=== PATIENT | female | born 1970 | race Caucasian/White ===

== ENCOUNTER 2017-02-05 12:56 | Inpatient (IN) ==
[2017-02-05] MEDS ORDERED: LEVOFLOXACIN INJ 750 MG in PREMIX 1 EACH IV STA (13:20)
[2017-02-05] MEDS ORDERED: ONDANSETRON 4 MG/2 ML VIAL IV STA (13:20)
[2017-02-05] MEDS ORDERED: SODIUM CHLORIDE 0.9% 2,000 ML IV STA (13:20)
[2017-02-05] MEDS ORDERED: HYDROmorphone 2 MG/1 ML VIAL IV STA (13:20)
[2017-02-05] MEDS ORDERED: KETOROLAC 30 MG/1 ML VIAL IV STA (13:20)
--- NOTE | 2017-02-05 13:27 | Emergency Department Note ---
Arrival - Arrival Chief Complaint: Abdominal / Flank Pain Stated Complaint: uti & kidney stones ED Nursing Triage Note: Transferred from [facility] by EMS for UTI and Kidney Stones. 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 NS @100 cc/ hr Mode of Arrival: Stretcher Limitations: No Limitations Source: Patient Time Seen by Provider: 02/05/17 13:20 - History of Present Illness HPI Narrative: This patient presents on transfer from [facility] for pyelonephritis with renal stone disease. The patient has a 24-hour history of progressive right flank pain, pink urine, chills, nausea, and vomiting. The patient was given analgesics and antibiotics prior to transfer after laboratory at [place] revealed a white blood cell count of 38,000, a very infected urine, and CT revealing a severe right sided hydronephrosis and hydroureter with a swollen right kidney with considerable perinephric stranding. Currently patient still in a considerable degree of pain and still very nauseated. Onset (ago): hour(s) (Patient presents 24 hours post onset of symptoms.) Date of Last Menstrual Period: hysterectomy Allergies/Adverse Reactions: Allergies Allergy/AdvReac Type Severity Reaction Status Date / Time ceftriaxone [From Rocephin] Allergy Swelling Verified 02/05/17 13:11 of Lip/Tongue/Throat tramadol [From Ultram] AdvReac RASH Verified 02/05/17 13:11 Home Medications: Home Medications Medication Instructions Recorded Confirmed Type Losartan/Hydrochlorothiazide 1 each PO DAILY 04/28/16 06/03/16 History [Hyzaar 100-12.5 Tablet] cloNIDine TAB [Catapres Tab] 0.2 mg PO TID 04/28/16 06/03/16 History Amitriptyline [Elavil] 10 mg PO Q6H #120 tablet 06/03/16 Rx Citalopram Hydrobromide [Celexa] 40 mg PO DAILY #30 tablet 06/03/16 Rx Gabapentin Cap/Tab [Neurontin 300 mg PO Q6H #120 capsule 06/03/16 Rx Cap/Tab] Lisinopril/Hydrochlorothiazide 1 each PO DAILY #30 tablet 06/03/16 Rx [Lisinopril-Hctz 20-25 mg Tab] hydrALAZINE TAB [Apresoline Tab] 100 mg PO TID #90 tablet 06/03/16 Rx Ketorolac Tab [Toradol Tab] 10 mg PO Q8H #14 tablet 11/12/16 Rx Review of System - Review of System 12 point system: reviewed and no additional remarkable complaints except as stated - Review of System Constitutional: Present: as per HPI Gastrointestinal: Present: as per HPI Genitourinary female: Present: as per HPI Medical,Surgical,& Family Hx - Medical History Cardio: History of: Hypertension - Surgical History Reproductive Surgeries: Surgical HX of;: Hysterectomy - Social History Smoking Status: Current every day smoker Frequency of Alcohol Use: None Type of Drug Use: None Exam Physical Examination: GENERAL: Well developed, well nourished female in obvious discomfort sitting up in bed HEENT: Normocephalic. No trauma. Moist mucous membranes. EOMI. PERRLA. ENT NML NECK: Supple. No adenopathy. CARDIAC: Regular. No murmurs. Heart rate 88 CHEST: Clear to auscultation. No respiratory distress. O2 sat 99 ABDOMEN: Soft. Nontender. Active bowel sounds. Very tender CVAs right worse than left EXTREMITIES: No trauma. Normal ROM. No pedal edema. SKIN: No diaphoresis. No rash. NEURO: Alert. Neuro intact. No focal deficits. Vital Signs: Vital Signs Temperature 98.4 F 02/05/17 12:58 Pulse Rate 93 H 02/05/17 12:58 Respiratory Rate 19 02/05/17 12:58 Blood Pressure 109/81 02/05/17 12:58 O2 Sat by Pulse Oximetry 99 02/05/17 12:58 Course - Reevaluation(s) Reevaluation #1: Patient expectant of admission - Consultations Consultation #1: Discussed with hospitalist service who will admit for further evaluation treatment. Results - Labs Labs: Lab per Charmaine revealed glucose 144, BUN 17, creatinine 1.6, potassium 3.5, sodium 136, white blood cell count 38,000, hematocrit 42, and a very infected urine. - Diagnostic Findings Procedure: CT Abdomen and Pelvis: image reviewed by me, report reviewed by me ( Per Charmaine revealed pancreatic atrophy severe right hydronephrosis and hydroureter with perinephric stranding consistent with pyelonephritis. At L3 was a 1 cm calculus. Prior appendectomy and hysterectomy noted.) Disposition Clinical Impression: Right pyelonephritis, Right hydronephrosis/hydroureter, Right renal stone disease Case discussed with: patient Condition: Guarded Time of Disposition: 13:36
[2017-02-05] MEDS ORDERED: LEVOFLOXACIN INJ 150 ML IV ONE (13:37)
[2017-02-05] MEDS ORDERED: KETOROLAC 30 MG/1 ML VIAL ONE (13:37)
[2017-02-05] MEDS ORDERED: HYDROmorphone 2 MG/1 ML VIAL ONE (13:37)
[2017-02-05] MEDS ORDERED: ONDANSETRON 4 MG/2 ML VIAL ONE (13:37)
--- NOTE | 2017-02-05 13:49 | XRay Report ---
XR chest 1V portable Indication: Generalized abdominal pain Comparison: Chest x-ray dated June 03, 2016 Technique: Single frontal view of the chest. Findings: The cardiomediastinal silhouette is stable in configuration. Bibasilar atelectasis, right greater than left. It would be difficult to completely exclude underlying infection. There is mild elevation of the right hemidiaphragm. Visualized osseous and surrounding soft tissue structures appear grossly unchanged.. IMPRESSION: As above. PROCEDURE INTERPRETED AT [facility] DEPARTMENT OF RADIOLOGY Final Report Signed by: Dr Tuan Knight
--- NOTE | 2017-02-05 13:50 | EKG Report ---
Stationary ECG Study [facility] ER Test Date: 02/05/2017 1:48:59 PM Pat Name: ANKUSH DOZIER Department: Room: 520 Gender: F Radiologist Physician: : [id number] Requested by: Matty Benton Order Number: [id number] Reading MD: JENNIFER SMITH Intervals [place] Rate: 93 P: 243 FL: 151 QRS: -82 QRSD: 87 T: -7 QT: 332 QTc: 383 Interpretive Statements ECTOPIC ATRIAL RHYTHM LEFT AXIS DEVIATION NONSPECIFIC T-WAVE ABNORMALITY Electronically Signed On 02-06-17 20:40:37 CDT by JENNIFER SMITH [email or web address]
[2017-02-05] MEDS ORDERED: PROMETHAZINE 25 MG/1 ML VIAL IM PRN (14:12)
[2017-02-05] MEDS ORDERED: ACETAMINOPHEN 325 MG TABLET PO PRN ×2 (14:12)
[2017-02-05] MEDS ORDERED: HYDROmorphone 2 MG/1 ML VIAL IV PRN (14:12)
[2017-02-05] MEDS ORDERED: DOCUSATE SODIUM 100 MG CAPSULE PO PRN (14:12)
[2017-02-05] MEDS ORDERED: ONDANSETRON 4 MG/2 ML VIAL IV PRN (14:12)
[2017-02-05] MEDS ORDERED: ZALEPLON 5 MG CAPSULE PO PRN (14:12)
[2017-02-05] MEDS ORDERED: guaiFENesin/DM ER 600-30 MG TABLET PO PRN (14:12)
[2017-02-05 14:22] LABS: Basophils # 0.1 10*3/uL (0.0-0.2); Basophils % 0.2 % (0.0-0.8); Hematocrit 39.8 VOL% (35.7-47.0); Hemoglobin 13.9 GM/DL (12.0-16.0); Immature Granulocytes % 1.8 %; Immature Granulocytes Absolute 0.53 #; Lymphocytes # 1.3 10*3/uL (1.4-4.0); Lymphocytes % 4.3 % (21.3-54.2); Mean Corpuscular HGB Conc 34.9 GM/DL (32-36); Mean Corpuscular Hemoglobin 30 PG (27-34); Mean Corpuscular Volume 86.9 FL (87-102); Mean Platelet Volume 10.9 FL (9.6-12.0); Monocytes # 0.9 10*3/uL (0.11-0.8); Neutrophils # 26.7 10*3/uL (1.4-7.4); Neutrophils % 90.7 % (38.7-73.9); Platelet Count 245 T/CUMM (130-400); Red Blood Count 4.58 MC/CUMM (3.8-5.5); Red Cell Distribution Width 14.4 % (9.3-17.3); White Blood Count 29.5 T/CUMM (4-12)
--- NOTE | 2017-02-05 14:23 | Hospitalist History & Physical ---
<JoseGretchen Royal - Last Filed: 02/05/17 14:12> Assessment and Plan - Time spent with patient Time spent with patient: Greater than 30 minutes (1) Hydronephrosis with renal and ureteral calculus obstruction Status: Acute Assessment and plan: Ms. Tariq is a 46-year-old white female with history of hypertension, chronic pain and depression presenting as a transfer from [facility] to [facility] ER with an obstructing renal calculus with pyelonephritis. Patient is in severe pain with associated nausea and vomiting. She is being admitted to the hospitalist service under Dr. Gardenr's care. She will be given antibiotics and IV fluids. We will consult urology for the obstructing renal stone. Patient is made n.p.o. and she will be given medicines for pain control and nausea. Will restart her home medicines for her blood pressure depression and pain. Dr. Gardner will see and examined patient and further recommendations to follow. Current Visit: Yes (2) Hypertension Status: Acute Current Visit: Yes (3) Flank pain Status: Acute Current Visit: Yes (4) Nausea and vomiting Status: Acute Current Visit: Yes History of Present Illness Chief complaint: Bilateral flank pain, nausea and vomiting History of present illness: Ms. Tariq is a 46 year old white female with history of hypertension, depression , and chronic pain presenting to the ED as a transfer from [facility] with complaints of bilateral flank pain with nausea and vomiting. Patient was found on CT scan to have a right obstructing renal stone with hydronephrosis and hydroureter, white count of 38,000, and urinary tract infection. Paperwork from [facility] will be uploaded into the system for review. It is difficult to obtain history and review of systems from patient due to her writhing around in pain with active nausea and vomiting. Patient does state that the pain started yesterday afternoon suddenly and she has had kidney stones before. She has never needed to be hospitalized for them and she always passes them on her own. She says she has never seen a urologist before. Patient denies headache, chest pain, shortness of breath, constipation or diarrhea, or lower extremity edema. Patient's case was discussed with Dr. Orellana the ED physician and Dr. Gardner the admitting hospitalist, it was agreed she would be admitted for further evaluation and treatment. Home Medications Medication Instructions Recorded Confirmed Type Losartan/Hydrochlorothiazide 1 each PO DAILY 04/28/16 06/03/16 History [Hyzaar 100-12.5 Tablet] cloNIDine TAB [Catapres Tab] 0.2 mg PO TID 04/28/16 06/03/16 History Amitriptyline [Elavil] 10 mg PO Q6H #120 tablet 06/03/16 Rx Citalopram Hydrobromide [Celexa] 40 mg PO DAILY #30 tablet 06/03/16 Rx Gabapentin Cap/Tab [Neurontin 300 mg PO Q6H #120 capsule 06/03/16 Rx Cap/Tab] Lisinopril/Hydrochlorothiazide 1 each PO DAILY #30 tablet 06/03/16 Rx [Lisinopril-Hctz 20-25 mg Tab] hydrALAZINE TAB [Apresoline Tab] 100 mg PO TID #90 tablet 06/03/16 Rx Ketorolac Tab [Toradol Tab] 10 mg PO Q8H #14 tablet 11/12/16 Rx Allergies Allergy/AdvReac Type Severity Reaction Status Date / Time ceftriaxone [From Rocephin] Allergy Swelling Verified 02/05/17 13:11 of Lip/Tongue/Throat tramadol [From Ultram] AdvReac RASH Verified 02/05/17 13:11 Medical,Surgical,& Family Hx - Medical History Cardio: History of: Hypertension Psychological: History of: Depression Genitourinary: History of: Kidney Stones - Surgical History Reproductive Surgeries: Surgical HX of;: Hysterectomy - Family History Family History: Reports;: Family Hypertension - Social History Smoking Status: Current every day smoker Have you smoked in the last 12 months: Yes Frequency of Alcohol Use: None Type of Drug Use: None Lives With:: Alone Functional capacity: independent ambulation Review of systems: A complete 10 system review of systems was obtained and pertinent negatives and positives per HPI Exam - Constitutional Vitals: Period Temp Pulse Resp BP Sys/Peterson Pulse Ox Last 24 Hr 98.4 F-98.4 F 88-93 19-19 109/81 99 Exam: Constitutional System: Moderate distress due to pain. No tremulousness. Head: Normocephalic, atraumatic. Ears, Nose and Throat System: No evidence of Otitis or Mastoiditis. No epistaxis or discharge Eyes System: Pupils equal, round, and reactive. Extraocular muscles intact. Neck: Supple, without adenopathy, No jugular venous distention. No thyromegaly, neck mass, or prior surgery apparent. Respiratory System: Chest clear to auscultation. Cardiovascular System: Heart with regular rate and rhythm. No murmur. GI System: Abdomen soft, nontender. Normo active bowel sounds present. CVA tenderness bilaterally Musculoskeletal System: limbs with no pedal edema. Full distal pulses. Neurological System: No discernable sensory deficit. No aphasia Psychiatric System: Conversation is rational Results - Labs Lab Results: I have reviewed the past 24 hour labs Labs: Labs from [facility] are as follows: Blood glucose 144, creatinine 1.6, sodium 138, potassium 3.5, anion gap 16.5, UA with positive nitrites and leukocytes with too many to count white blood cells, white count 38 ,000, drug screen is negative - Diagnostic Findings Procedure: CT Abdomen and Pelvis: report reviewed by me (Severe right hydronephrosis and hydroureter to the level of the L3 superior endplate with a 1 cm calculus seen. Right kidney is swollen and there is considerable right perinephric stranding which is just pyelolymphatic backflow. A ruptured calyx cannot be excluded.) <Marialuisa Gardner - Last Filed: 02/05/17 15:57> History of Present Illness History of present illness: Patient seen and examined independently of ROSE Garcia, agree with history, assessment and plan as documented. 46 y/o WF with bilateral flank pain, right greater than left, started yesterday. Found to have leukocytosis and ct with right hydronephrosis and right perinephric stranding. On exam patient is very uncomfortable due to pain. Urology being consulted for obstructing stone. Starting on merrem. F/u urine culture. Also with ABI, most likely related to obstructing stone. Exam - Constitutional Vitals: Period Temp Pulse Resp BP Sys/Peterson Pulse Ox Last 24 Hr 97.2 F-98.4 F 88-108 16-20 109-167/81-118 98-100 Results - Labs CBC & BMP: 02/05/17 14:20 02/05/17 14:20
[2017-02-05] MEDS ORDERED: NON-FORMULARY MEDICATION (Losartan/Hydrochlorothiazide [Hyzaar 100-12.5 Tablet] 1 EACH) PO SCH (14:30)
[2017-02-05] MEDS ORDERED: LISINOPRIL/HCTZ 20-25 MG TABLET PO SCH (14:30)
[2017-02-05 14:49] LABS: Band Neutrophils 3 % (0-10); Lymphocytes 5 % (20-55); Platelet Estimate Adequate; Segmented Neutrophils 88 % (50-85)
[2017-02-05 14:50] LABS: Lactic Acid 2.1 MMOL/L (0.4-2.0); Total Cells Counted 100
[2017-02-05 14:52] LABS: Alanine Aminotransferase 16 U/L (13-56); Alkaline Phosphatase 108 U/L (45-117); Aspartate Amino Transferase 10 U/L (0-37); Blood Urea Nitrogen 17 MG/DL (7-18); Calcium 8.2 MG/DL (8.5-10.1); Glucose 115 MG/DL (74-106); Osmolality,Calculated 281.4 MOS/KG (273-304); Potassium 3.9 MMOL/L (3.5-5.1); Sodium 140 MMOL/L (136-145); Troponin I Only < 0.015 NG/ML (0.00-0.045)
[2017-02-05 15:02] LABS: Apearance,Urine CLOUDY (Clear); Bilirubin,Urine Negative (Negative); Blood, Urine Moderate mg/dL (Negative); Glucose,Urine (UA) Negative (Negative); Ketones,Urine Negative (Negative); Mucus,Urine Few /LPF (Occasional); Nitrite,Urine Negative (Negative); Protein,Urine 100 MG/DL; RBC,Urine 23 /HPF (0-4); Squamous Epithelial Cell,Urine Few /HPF (0-10); Urine Color Yellow (Yellow); Urine Specific Gravity 1.012 (1.001-1.035); Urine Urobilinogen < 2.0 EU/DL (0.2-1.0); WBC,Urine 845 /HPF (0-6)
[2017-02-05] MEDS: SODIUM CHLORIDE 0.9% 1,000 ML IV SCH ×2 (16:41→20:26)
[2017-02-05] MEDS: GABAPENTIN 300 MG CAPSULE PO SCH ×2 (16:41→20:22)
[2017-02-05] MEDS: CITALOPRAM 40 MG TABLET PO SCH (16:51)
[2017-02-05] MEDS: MEROPENEM 500 MG in SODIUM CHLORIDE 0.9% 100 ML IV SCH (16:58)
[2017-02-05] MEDS: PANTOPRAZOLE 40 MG VIAL IV SCH (16:58)
[2017-02-05] MEDS: AMITRIPTYLINE 10 MG TABLET PO SCH ×2 (17:31→18:16)
[2017-02-05] MEDS: KETOROLAC 30 MG/1 ML VIAL IV SCH (17:37)
--- NOTE | 2017-02-05 18:04 | Urology Consultation ---
Assessment and Plan - Time spent with patient Time spent with patient: Greater than 30 minutes (1) Hydronephrosis with renal and ureteral calculus obstruction Status: Acute Assessment and plan: I recommend we get IR to place a right percutaneous nephrostomy to cool is off. I think that can be done in the morning after she received her fluids and antibiotics tonight. Current Visit: Yes History of Present Illness - Data of Consult Patient: new to practice Consult date: 02/05/17 Requesting Physician: Marialuisa Gardner - Consult Narrative Reason for consult: Stone,hydro History of present illness: Ms. Tariq is a 46 year old female with a history of having a stone in the past. She presented to the emergency room at [facility] with severe right flank pain. She had an elevated white count. She was then sent [facility]. She was seen in the emergency room thought that pyelonephritis. She does have significant hydronephrosis with a 1 cm mid ureteral stone. I recommend we get a nephrostomy placed. I think this can be done in the morning after she receives her antibiotics tonight. We will have to cool the stone off and then we will discuss lithotripsy. The nephrostomy will give us an irrigation technique when we do our lithotripsy. So the nephrostomy is the best way to go. CC: Marialuisa Gardner MD - Home Medications and Allergies Home Medications: Home Medications Medication Instructions Recorded Confirmed Type Losartan/Hydrochlorothiazide 1 each PO DAILY 04/28/16 06/03/16 History [Hyzaar 100-12.5 Tablet] cloNIDine TAB [Catapres Tab] 0.2 mg PO TID 04/28/16 06/03/16 History Amitriptyline [Elavil] 10 mg PO Q6H #120 tablet 06/03/16 Rx Citalopram Hydrobromide [Celexa] 40 mg PO DAILY #30 tablet 06/03/16 Rx Gabapentin Cap/Tab [Neurontin 300 mg PO Q6H #120 capsule 06/03/16 Rx Cap/Tab] Lisinopril/Hydrochlorothiazide 1 each PO DAILY #30 tablet 06/03/16 Rx [Lisinopril-Hctz 20-25 mg Tab] hydrALAZINE TAB [Apresoline Tab] 100 mg PO TID #90 tablet 06/03/16 Rx Ketorolac Tab [Toradol Tab] 10 mg PO Q8H #14 tablet 11/12/16 Rx Allergies/Adverse Reactions: Allergies Allergy/AdvReac Type Severity Reaction Status Date / Time ceftriaxone [From Rocephin] Allergy Swelling Verified 02/05/17 13:11 of Lip/Tongue/Throat tramadol [From Ultram] AdvReac RASH Verified 02/05/17 13:11 12 point system: reviewed and no additional remarkable complaints except as stated - Gastrointestinal Gastrointestinal: Present: abdominal pain. Absent: cramping, diarrhea, hematemesis, hematochezia - Genitourinary Genitourinary: Present: dysuria, flank pain. Absent: abnormal vaginal bleeding , difficulty urinating Exam - Constitutional Vitals: Period Temp Pulse Resp BP Sys/Peterson Pulse Ox Last 24 Hr 97.2 F-98.4 F 88-108 16-20 109-167/81-118 98-100 - GI/Abdominal GI/Abdominal exam: Present: hypoactive bowel sounds, tenderness, soft, other ( Right flank pain). Absent: rebound Results - Labs CBC & BMP: 02/05/17 14:20 02/05/17 14:20 Lab Results: I have reviewed the past 24 hour labs - Diagnostic Findings Procedure: CT Abdomen and Pelvis: report reviewed by me
[2017-02-05] MEDS: ENOXAPARIN 30 MG/0.3 ML SYRINGE SUBCUT SCH (18:16)
[2017-02-05] MEDS: cloNIDine 0.1 MG TABLET PO SCH (20:22)
[2017-02-06] MEDS: KETOROLAC 30 MG/1 ML VIAL IV SCH ×4 (00:50→17:17)
[2017-02-06] MEDS: MEROPENEM 500 MG in SODIUM CHLORIDE 0.9% 100 ML IV SCH ×3 (00:58→20:29)
[2017-02-06] MEDS: SODIUM CHLORIDE 0.9% 1,000 ML IV SCH ×4 (00:58→18:38)
[2017-02-06] MEDS: AMITRIPTYLINE 10 MG TABLET PO SCH ×4 (00:59→17:17)
[2017-02-06] MEDS: GABAPENTIN 300 MG CAPSULE PO SCH ×4 (02:56→23:22)
[2017-02-06] MEDS: HYDROmorphone 2 MG/1 ML VIAL IV PRN ×4 (03:42→16:00)
[2017-02-06 05:32] LABS: Basophils % 0.1 % (0.0-0.8); Eosinophils % 0.1 % (0.00-10.9); Hematocrit 34.5 VOL% (35.7-47.0); Hemoglobin 11.7 GM/DL (12.0-16.0); Immature Granulocytes % 2.9 %; Immature Granulocytes Absolute 0.61 #; Lymphocytes % 4.6 % (21.3-54.2); Mean Corpuscular HGB Conc 33.9 GM/DL (32-36); Mean Corpuscular Hemoglobin 30 PG (27-34); Mean Corpuscular Volume 88.9 FL (87-102); Mean Platelet Volume 11.1 FL (9.6-12.0); Monocytes % 4.8 % (1.7-12.7); Neutrophils # 18.6 10*3/uL (1.4-7.4); Neutrophils % 87.5 % (38.7-73.9); Platelet Count 185 T/CUMM (130-400); Red Blood Count 3.88 MC/CUMM (3.8-5.5); Red Cell Distribution Width 14.6 % (9.3-17.3); White Blood Count 21.3 T/CUMM (4-12)
[2017-02-06 05:46] LABS: Band Neutrophils 4 % (0-10); Lymphocytes 7 % (20-55); Metamyelocytes 1 %; Segmented Neutrophils 86 % (50-85); Total Cells Counted 100
[2017-02-06 05:47] LABS: Hypochromasia 1+; Microcytosis 1+
[2017-02-06 05:48] LABS: Platelet Estimate Adequate
[2017-02-06 05:55] LABS: Calcium 8.1 MG/DL (8.5-10.1); Magnesium 1.6 MG/DL (1.8-2.4); Osmolality,Calculated 284.3 MOS/KG (273-304); Potassium 3.9 MMOL/L (3.5-5.1)
--- NOTE | 2017-02-06 07:18 | Physician Query Form ---
CLICK EDIT DOCUMENT TO SELECT QUERY ANSWER --> OK --> SIGN Elizabet Castellanos RN, CCDS Certified Clinical Botany Technician W) [phone] (f) [phone] [email or web address]: Make your selection(s) from the choices in EACH section by typing an "x" and enter comments in the comment section. Please use your independent medical judgment in providing your response. This request does not imply that any particular answer is desired or expected. CLINICAL INDICATORS: (Providers should not edit this section) The medical record indicates that the patient was admitted with a renal stone, UTI, WBC 29.5, Lactic Acid of 2.1#, ABI, Pulse of 93# in the ER and the patient was placed on Levaquin/ Meropenem. Please clarify which, if any, of the following is the etiology of the above symptoms and treatment rendered: ( ) Sepsis due to a localized infection, please specify infection: (X ) Severe Sepsis (sepsis with acute organ failure) - Please specify type acute organ failure: Secondary to pyelophritis and Acute kidney injury ( ) Septic Shock (severe sepsis with hypotension) ( ) SIRS of noninfectious origin ( ) Sepsis due to a device, implant or graft, please specify: ( ) Localized infection only, without systemic illness, please specify infection : ( ) Bacteremia (abnormal lab finding only, does not indicate systemic illness) ( ) Other condition, please specify: ( ) Clinically unable to determine Criteria for Sepsis (SIRS due to an infection) should be based on 2 or more of the following being present: Temperature > 101F or < 96.8F WBC > 12,000 or < 4,000, or > 10% bands Tachycardia HR > 90 beats/minute Tachypnea RR > 20 breaths/minute or PaCO2 > 32mmHg Lactate level > 2.0 mmol/L (>4 is equivalent to severe sepsis) Altered Mental Status Mottling of skin or prolonged capillary refill Non-diabetic hyperglycemia (blood sugar >120 mg/dl) Other evidence of acute organ failure associated with sepsis ( severe sepsis) COMMENTS: PLEASE ALSO DOCUMENT RESPONSE IN PROGRESS NOTES AND/OR DISCHARGE SUMMARY Use of terms such as suspected, likely, or probable (associated with a specific diagnosis that is being evaluated, monitored, or treated as if it exists) are acceptable and can be restated in the discharge summary if not ruled out. MTDD
[2017-02-06] MEDS: cloNIDine 0.1 MG TABLET PO SCH ×4 (08:22→23:23)
[2017-02-06] MEDS: CITALOPRAM 40 MG TABLET PO SCH (08:22)
[2017-02-06] MEDS: PANTOPRAZOLE 40 MG VIAL IV SCH (08:44)
--- NOTE | 2017-02-06 09:36 | Inventional Radiology Consult ---
Assessment and Plan - Time spent with patient Time spent with patient: Less than 30 minutes (1) Hydronephrosis with renal and ureteral calculus obstruction Problem details: obstructing right UPJ stone Status: Acute Assessment and plan: plan for right nephrostomy today with conscious sedation Current Visit: Yes IR Consult - Data of Consult Patient: new to practice Consult date: 02/06/17 Requesting Physician: Matthew Lange - Consult Narrative Reason for consult: right hydronephrosis due to stone obstruction History of present illness: Marciano is a 46 year old F Admitted from transfer with excruciating right flank pain and imaging demonstrating hydronephrosis of the right kidney with surrounding perinephric fluid likely due to urine leak from the obstructing 1 cm stone at the UPJ. Patient is still and 10 out of 10 pain despite pain medication overnight. Amniotic administration is also been initiated following admission. Patient does not have chest pain or shortness of breath. No hematuria is reported. No fevers. - Home Medications and Allergies Home Medications: Home Medications Medication Instructions Recorded Confirmed Type Losartan/Hydrochlorothiazide 1 each PO DAILY 04/28/16 06/03/16 History [Hyzaar 100-12.5 Tablet] cloNIDine TAB [Catapres Tab] 0.2 mg PO TID 04/28/16 06/03/16 History Amitriptyline [Elavil] 10 mg PO Q6H #120 tablet 06/03/16 Rx Citalopram Hydrobromide [Celexa] 40 mg PO DAILY #30 tablet 06/03/16 Rx Gabapentin Cap/Tab [Neurontin 300 mg PO Q6H #120 capsule 06/03/16 Rx Cap/Tab] Lisinopril/Hydrochlorothiazide 1 each PO DAILY #30 tablet 06/03/16 Rx [Lisinopril-Hctz 20-25 mg Tab] hydrALAZINE TAB [Apresoline Tab] 100 mg PO TID #90 tablet 06/03/16 Rx Ketorolac Tab [Toradol Tab] 10 mg PO Q8H #14 tablet 11/12/16 Rx Allergies/Adverse Reactions: Allergies Allergy/AdvReac Type Severity Reaction Status Date / Time ceftriaxone [From Rocephin] Allergy Swelling Verified 02/05/17 13:11 of Lip/Tongue/Throat tramadol [From Ultram] AdvReac RASH Verified 02/05/17 13:11 12 point system: reviewed and no additional remarkable complaints except as stated - Cardiovascular Cardiovascular: Absent: chest pain at rest - Gastrointestinal Gastrointestinal: Present: abdominal pain - Genitourinary Genitourinary: Present: as per HPI - Psychiatric Psychiatric: Present: anxiety Medical,Surgical,& Family Hx - Medical History Cardio: History of: Hypertension Psychological: History of: Depression Genitourinary: History of: Kidney Stones - Surgical History Reproductive Surgeries: Surgical HX of;: Hysterectomy - Family History Family History: Reports;: Family Hypertension - Social History Smoking Status: Current every day smoker Frequency of Alcohol Use: None Type of Drug Use: None Exam - Labs CBC & BMP: 02/06/17 05:06 02/06/17 05:06 Lab Results: I have reviewed the past 24 hour labs Image Studies: CT abd/pel reviewed - Constitutional Vitals: Period Temp Pulse Resp BP Sys/Peterson Pulse Ox Last 24 Hr 97.1 F-99.9 F 73-108 16-20 109-167/70-118 90-100 General appearance: mild distress, morbidly obese - Eye Eye exam: Present: EOMI - Respiratory Respiratory exam: Present: clear to auscultation bilaterally - Cardiovascular Cardiovascular exam: Present: regular rate and rhythm - GI/Abdominal GI/Abdominal exam: Present: guarding (right side) - Back Exam Back exam: Present: CVA tenderness (R) - Neurological Exam Neurological exam: Present: alert, oriented X3 - Psychiatric Psychiatric exam: Present: normal affect, normal mood, agitated, anxious - Skin Skin exam: Present: normal color, dry
[2017-02-06] MEDS ORDERED: fentaNYL 100 MCG/2 ML VIAL IV ONE (09:39)
[2017-02-06] MEDS ORDERED: MIDAZOLAM 2 MG/2 ML VIAL IV ONE (09:39)
--- NOTE | 2017-02-06 10:16 | Hospitalist Progress Note ---
Assessment and Plan (1) Sepsis Status: Acute Assessment and plan: Follow-up urine and blood cultures. Continue Merrem. Sepsis secondary to urinary tract infection and pyelonephritis. Urology consulted and interventional radiology considering percutaneous nephrostomy tube. Current Visit: Yes (2) Pyelonephritis Status: Acute Assessment and plan: Continue IV antibiotics. Current Visit: Yes (3) Hydronephrosis with renal and ureteral calculus obstruction Problem details: obstructing right UPJ stone Status: Acute Assessment and plan: Percutaneous nephrostomy tube ordered with lithotripsy to follow to treat 1 cm stone. Current Visit: Yes (4) Hypertension Status: Chronic Current Visit: Yes Qualifiers: Hypertension type: essential hypertension Qualified Code(s): I10 - Essential (primary) hypertension Exam - Constitutional Vitals: Period Temp Pulse Resp BP Sys/Peterson Pulse Ox Last 24 Hr 97.1 F-99.9 F 73-108 16-20 109-167/70-118 90-100 Results - Labs CBC & BMP: 02/06/17 05:06 02/06/17 05:06
--- NOTE | 2017-02-06 12:34 | Urology Progress Note ---
Assessment and Plan (1) Hydronephrosis with renal and ureteral calculus obstruction Problem details: obstructing right UPJ stone Status: Acute Assessment and plan: I recommend we get IR to place a right percutaneous nephrostomy to cool is off. I think that can be done in the morning after she received her fluids and antibiotics tonight. Current Visit: Yes Urology - PN: Subj Interval history: Patient is feeling about the same. Her white count has dropped some. She is to had no fever. She still complains of some pain. She has yet to get her nephrostomy. Dr. Garrido has seen her I think he plans on that this afternoon. So far her urine cultures negative. Exam - Constitutional Vitals: Period Temp Pulse Resp BP Sys/Peterson Pulse Ox Last 24 Hr 97.1 F-99.9 F 73-108 16-20 109-167/70-118 90-100 Results - Labs CBC & BMP: 02/06/17 05:06 02/06/17 05:06
[2017-02-06] MEDS ORDERED: MIDAZOLAM 2 MG/2 ML VIAL ONE ×3 (13:35→14:38)
[2017-02-06] MEDS ORDERED: fentaNYL 100 MCG/2 ML VIAL ONE (13:35)
--- NOTE | 2017-02-06 15:53 | Post Interventional Procedure ---
Pre-op diagnosis: right UPJ stone with hydronephrosis and urine leak Post-op diagnosis: same Procedure: right perc nephrostomy Contrast: 15 mL Omin 350 Flouroscopy: 11 min Radiologist: Bryon Garrido Anesthesia: conscious sedation Medications: Versed 6 mg intravenously fentanyl 100 mcg intravenously. Total sedation time 35 minutes. Total Sedation Time: 55 min Specimens: none sent Estimated blood loss: none Complications: none Condition: stable Description/Findings: Right PCN placed with ultrasound and fluoroscopic guidance. Assessment and Plan - Time spent with patient Time spent with patient: Greater than 30 minutes (1) Hydronephrosis with renal and ureteral calculus obstruction Problem details: obstructing right UPJ stone Status: Acute Assessment and plan: plan for right nephrostomy today with conscious sedation Current Visit: Yes
--- NOTE | 2017-02-06 15:58 | Interventional Radiology Rpt ---
IR nephrostomy perc RT Percutaneous nephrostomy catheter placement using fluoroscopic and ultrasound guidance Nephrostogram and Ureterogram Ultrasound of the abdomen Clinical Information: Right hydronephrosis with perinephric fluid likely due to collecting system rupture/urine leak. Severe right flank pain. Leukocytosis, fever. Physician[s]: Dr. Garrido. Total number of images for the study: 45 Procedure: The patient was advised of the benefits, risks, and alternatives of the procedure and informed consent was obtained. A time out was performed with verification of the patient's name, MRN, site of procedure, and type of procedure to be performed. The patient was positioned in the prone position on the angiographic table. The site was prepped and draped in the usual sterile fashion. Moderate conscious sedation was administered throughout the procedure for 55 minutes, during which the operating physician monitored the patient. Please see flow sheet in the [facility] system for details. A litigation coordinator radiograph reveals single calcific density within the right flank likely represent the previously noted stone.. the anticipated puncture site on the flank was anesthetized with lidocaine. Using ultrasound guidance, a posterior lower pole calyx was accessed with a 20 Gauge Chiba needle. A nephrostogram and ureterogram were performed demonstrating mildly dilated renal pelvis. A Ballard wire was then advanced into the collecting system. The needle was then exchanged for a nonvascular introducer set. An Amplatz wire was then advanced into the ureter. An 8 Upper Sorbian Skater nephrostomy catheter was then advanced into the renal collecting system. The pigtail was formed and locked in position. A final nephrostogram and ureterogram were performed confirming positioning of the pigtail within the renal pelvis with mild hydronephrosis. Ureterogram demonstrates no hydroureter. The ureter is patent to the urinary bladder. The catheter was sutured in position with Percu-Stay device and a sterile dressing applied. The catheter was placed to gravity drainage. The patient tolerated the procedure well and was returned to the PRU in stable condition. EBL: < 5 mL. Total fluoroscopy time: 11 minutes Complications: None. Conclusion: 1. Nephrostogram and Ureterogram demonstrate indwelling UPJ partially obstructing stone and mild hydronephrosis. 2. Successful right nephrostomy catheter placement. PROCEDURE INTERPRETED AT [facility] DEPARTMENT OF RADIOLOGY Final Report Signed by: Bryon Garrido
[2017-02-06] MEDS: SODIUM CHLORIDE 0.45% 1,000 ML IV SCH (16:05)
[2017-02-06] MEDS: ENOXAPARIN 30 MG/0.3 ML SYRINGE SUBCUT SCH (16:06)
[2017-02-06] MEDS: diphenhydrAMINE CAP 25 MG CAPSULE PO PRN ×2 (16:17→20:28)
[2017-02-06 23:21] LABS: Apearance,Urine CLOUDY (Clear); Bacteria,Urine Occasional /HPF (Few); Bilirubin,Urine Negative (Negative); Blood, Urine Large mg/dL (Negative); Glucose,Urine (UA) 50 mg/dL (Negative); Ketones,Urine Negative (Negative); Nitrite,Urine Negative (Negative); Protein,Urine 100 MG/DL; RBC,Urine 5552 /HPF (0-4); Urine Color Red (Yellow); Urine Specific Gravity 1.012 (1.001-1.035); Urine Urobilinogen < 2.0 EU/DL (0.2-1.0); WBC,Urine 38 /HPF (0-6)
[2017-02-07] MEDS: KETOROLAC 30 MG/1 ML VIAL IV SCH ×2 (00:44→05:29)
[2017-02-07] MEDS: AMITRIPTYLINE 10 MG TABLET PO SCH ×4 (00:44→17:46)
[2017-02-07] MEDS: SODIUM CHLORIDE 0.9% 1,000 ML IV SCH ×4 (01:24→21:02)
[2017-02-07] MEDS: GABAPENTIN 300 MG CAPSULE PO SCH ×4 (03:48→21:01)
[2017-02-07 05:25] LABS: Basophils % 0.2 % (0.0-0.8); Eosinophils # 0.2 10*3/uL (0.0-0.87); Eosinophils % 1.8 % (0.00-10.9); Hematocrit 32.4 VOL% (35.7-47.0); Hemoglobin 10.9 GM/DL (12.0-16.0); Immature Granulocytes % 0.5 %; Immature Granulocytes Absolute 0.04 #; Lymphocytes # 1.2 10*3/uL (1.4-4.0); Lymphocytes % 13.4 % (21.3-54.2); Mean Corpuscular HGB Conc 33.6 GM/DL (32-36); Mean Corpuscular Hemoglobin 30 PG (27-34); Mean Corpuscular Volume 88.3 FL (87-102); Mean Platelet Volume 11.1 FL (9.6-12.0); Monocytes # 0.6 10*3/uL (0.11-0.8); Monocytes % 6.6 % (1.7-12.7); Neutrophils # 6.7 10*3/uL (1.4-7.4); Neutrophils % 77.5 % (38.7-73.9); Platelet Count 146 T/CUMM (130-400); Red Blood Count 3.67 MC/CUMM (3.8-5.5); Red Cell Distribution Width 14.7 % (9.3-17.3); White Blood Count 8.7 T/CUMM (4-12)
[2017-02-07] MEDS: HYDROmorphone 2 MG/1 ML VIAL IV PRN ×4 (05:28→21:00)
[2017-02-07 05:53] LABS: Calcium 7.5 MG/DL (8.5-10.1); Osmolality,Calculated 283.3 MOS/KG (273-304); Potassium 3.8 MMOL/L (3.5-5.1)
[2017-02-07 06:07] LABS: Band Neutrophils 2 % (0-10); Eosinophils 1 % (0-10); Lymphocytes 15 % (20-55); Segmented Neutrophils 77 % (50-85); Total Cells Counted 100
[2017-02-07 06:08] LABS: Hypochromasia Slight; Microcytosis 1+; Platelet Estimate Adequate
--- NOTE | 2017-02-07 07:45 | Urology Progress Note ---
Assessment and Plan (1) Hydronephrosis with renal and ureteral calculus obstruction Problem details: obstructing right UPJ stone Status: Acute Assessment and plan: I recommend we get IR to place a right percutaneous nephrostomy to cool is off. I think that can be done in the morning after she received her fluids and antibiotics tonight. Current Visit: Yes Urology - PN: Subj Interval history: Patient is feeling better after nephrostomy. She spiked a temp to 103 after the nephrostomy placement which I am not surprised. Her urine culture is negative and her blood cultures are negative so far. These have been repeated due to the temp spike she is on Merrem. Her urine is clear. The nephrostomy drainage is clear. If if she runs no fever throughout the day I think she can go home tomorrow. We will cool this off for a week or so and then we will treat her with lithotripsy the following week. Exam - Constitutional Vitals: Period Temp Pulse Resp BP Sys/Peterson Pulse Ox Last 24 Hr 97.1 F-103 F 66-126 16-26 98-203/60-118 90-100 Results - Labs CBC & BMP: 02/07/17 05:18 02/07/17 05:18
[2017-02-07] MEDS: NICOTINE 21 MG/24 HR PATCH TRANSDERM PRN (08:19)
[2017-02-07] MEDS: CITALOPRAM 40 MG TABLET PO SCH (08:19)
[2017-02-07] MEDS: cloNIDine 0.1 MG TABLET PO SCH ×3 (08:19→21:01)
[2017-02-07] MEDS: PANTOPRAZOLE 40 MG VIAL IV SCH (08:20)
[2017-02-07] MEDS: MEROPENEM 500 MG in SODIUM CHLORIDE 0.9% 100 ML IV SCH ×2 (08:21→21:03)
--- NOTE | 2017-02-07 11:40 | Hospitalist Progress Note ---
Assessment and Plan (1) Hydronephrosis with renal and ureteral calculus obstruction Problem details: obstructing right UPJ stone Status: Acute Current Visit: Yes (2) Hypertension Status: Chronic Current Visit: Yes Qualifiers: Hypertension type: essential hypertension Qualified Code(s): I10 - Essential (primary) hypertension (3) Sepsis Status: Acute Current Visit: Yes (4) Pyelonephritis Status: Acute Assessment and plan: We will continue with IV antibiotics. Blood cultures and urine cultures have been negative to date. Per Dr. Lange the patient remains afebrile should be able to be discharged tomorrow Current Visit: Yes Hospitalist: Subjective Interval history: Patient is complaining about flank pain Exam - Constitutional Vitals: Period Temp Pulse Resp BP Sys/Peterson Pulse Ox Last 24 Hr 97.3 F-103 F 66-126 16-26 98-203/60-118 91-100 General appearance: over weight - Head Head exam: Present: normal inspection - ENT ENT exam: Present: normal exam - Neck Neck exam: Present: normal inspection - Respiratory Respiratory exam: Present: clear to auscultation bilaterally - Cardiovascular Cardiovascular exam: Present: regular rate and rhythm - GI/Abdominal GI/Abdominal exam: Present: normal bowel sounds - Back Exam Back exam: Present: other (Urostomy tube in place) - Neurological Exam Neurological exam: Present: alert, oriented X3 Results - Labs CBC & BMP: 02/07/17 05:18 02/07/17 05:18
[2017-02-07] MEDS: SODIUM CHLORIDE 0.45% 1,000 ML IV SCH (12:46)
[2017-02-07] MEDS: ENOXAPARIN 30 MG/0.3 ML SYRINGE SUBCUT SCH (15:31)
[2017-02-08] MEDS: AMITRIPTYLINE 10 MG TABLET PO SCH ×3 (00:43→12:05)
[2017-02-08] MEDS: GABAPENTIN 300 MG CAPSULE PO SCH ×2 (02:30→08:47)
[2017-02-08] MEDS: SODIUM CHLORIDE 0.9% 1,000 ML IV SCH ×2 (04:06→12:01)
[2017-02-08 07:13] LABS: Basophils % 0.3 % (0.0-0.8); Eosinophils # 0.1 10*3/uL (0.0-0.87); Eosinophils % 2.1 % (0.00-10.9); Hematocrit 33.8 VOL% (35.7-47.0); Hemoglobin 11.4 GM/DL (12.0-16.0); Immature Granulocytes % 0.8 %; Immature Granulocytes Absolute 0.05 #; Lymphocytes # 1.3 10*3/uL (1.4-4.0); Lymphocytes % 19.7 % (21.3-54.2); Mean Corpuscular HGB Conc 33.7 GM/DL (32-36); Mean Corpuscular Hemoglobin 30 PG (27-34); Mean Platelet Volume 11.5 FL (9.6-12.0); Monocytes # 0.8 10*3/uL (0.11-0.8); Monocytes % 11.3 % (1.7-12.7); Neutrophils # 4.4 10*3/uL (1.4-7.4); Neutrophils % 65.8 % (38.7-73.9); Platelet Count 188 T/CUMM (130-400); Red Blood Count 3.84 MC/CUMM (3.8-5.5); Red Cell Distribution Width 14.8 % (9.3-17.3); White Blood Count 6.6 T/CUMM (4-12)
[2017-02-08 07:37] LABS: Band Neutrophils 2 % (0-10); Burr Cells Slight; Lymphocytes 19 % (20-55); Microcytosis Slight; Platelet Estimate Normal; Segmented Neutrophils 68 % (50-85); Total Cells Counted 100
[2017-02-08 07:43] LABS: Potassium 3.8 MMOL/L (3.5-5.1)
[2017-02-08] MEDS: HYDROmorphone 2 MG/1 ML VIAL IV PRN (08:42)
[2017-02-08] MEDS: MEROPENEM 500 MG in SODIUM CHLORIDE 0.9% 100 ML IV SCH (08:46)
[2017-02-08] MEDS: cloNIDine 0.1 MG TABLET PO SCH ×2 (08:47→14:42)
[2017-02-08] MEDS: CITALOPRAM 40 MG TABLET PO SCH (08:47)
[2017-02-08] MEDS: NICOTINE 21 MG/24 HR PATCH TRANSDERM PRN (08:48)
--- NOTE | 2017-02-08 08:59 | Urology Progress Note ---
Assessment and Plan (1) Hydronephrosis with renal and ureteral calculus obstruction Problem details: obstructing right UPJ stone Status: Acute Assessment and plan: I recommend we get IR to place a right percutaneous nephrostomy to cool is off. I think that can be done in the morning after she received her fluids and antibiotics tonight. Current Visit: Yes Urology - PN: Subj Interval history: Patient is afebrile. She still has some soreness from the nephrostomy in the stone but she is better. I think she can go home. Her cultures all are negative. Blood and urine. With this in mind we will cover her with Bactrim for 1 week. I will make her an appointment to see me in 1 week. I will also write a prescription for [place]. Exam - Constitutional Vitals: Period Temp Pulse Resp BP Sys/Peterson Pulse Ox Last 24 Hr 97.3 F-99.3 F 64-90 18-20 119-183/78-101 91-99 Results - Labs CBC & BMP: 02/08/17 06:57 02/08/17 06:57
[2017-02-08] MEDS ORDERED: PANTOPRAZOLE 40 MG TABLET PO SCH (09:00)
[2017-02-08] MEDS: SODIUM CHLORIDE 0.45% 1,000 ML IV SCH (12:29)
[2017-02-08 13:02] VITALS: BP 148/92
--- NOTE | 2017-02-08 15:32 | Discharge Summary ---
Hospital Course - Hospital Course Hospital Course: His hospitalization included patient admitted in transfer for abdominal discomfort found to have kidney stones. She was evaluated by urology for hydronephrosis and kidney stones. She was also treated with broad-spectrum antibiotics for pyelonephritis. Moreover she had consultation with interventional radiology for nephrostomy tube that was placed. She continued to do acceptable was able to ablate the halls. She is transitioned to p.o. antibiotics. No fevers and vital signs been stable. At this time she is reached maximal hospitalization and is ready for discharge. She will follow with Dr. Lange in 1 week. - Time spent with patient Time with patient DS: Greater than 30 minutes Diagnosis - Discharge Diagnosis (1) Hydronephrosis with renal and ureteral calculus obstruction Status: Resolved (2) Hypertension Status: Chronic (3) Pyelonephritis Status: Resolved Specialty Discharge - Follow Up or Referrals Follow up with: Matthew Lange MD [Physician] - 02/18/17 1:00 pm (KUB @1:00 F/U @ 3:00) Discharge Plan - Discharge Data Disposition: Disch To Home/Self Care Condition at Discharge: Stable Discharge Diet: advance to your usual diet Hygiene: no restrictions - Discharge Medications New Nicotine 21 mg/24 Hr Patch [Nicoderm CQ 21 mg/24 hr Patch] 1 patch TRANSDERM DAILY PRN patch PRN Reason: Nicotine Cravings Continue cloNIDine TAB [Catapres Tab] 0.2 mg PO TID Amitriptyline [Elavil] 10 mg PO Q6H #120 tablet Citalopram Hydrobromide [Celexa] 40 mg PO DAILY #30 tablet Lisinopril/Hydrochlorothiazide [Lisinopril-Hctz 20-25 mg Tab] 1 each PO DAILY #30 tablet Gabapentin Cap/Tab [Neurontin Cap/Tab] 300 mg PO Q6H #120 capsule Ketorolac Tab [Toradol Tab] 10 mg PO Q8H #14 tablet Discontinued Losartan/Hydrochlorothiazide [Hyzaar 100-12.5 Tablet] 1 each PO DAILY hydrALAZINE TAB [Apresoline Tab] 100 mg PO TID #90 tablet - Follow Up or Referral Follow Up: Matthew Lange MD [Physician] - 02/18/17 1:00 pm (KUB @1:00 F/U @ 3:00) - Forms/Instructions Instructions: Sulfamethoxazole/Trimethoprim (By mouth), Hydrocodone/ Acetaminophen (By mouth), Nephrostomy Tube Care (DC), Hand Hygiene (DC), Hydronephrosis (DC) Exam - Constitutional Vitals: Period Temp Pulse Resp BP Sys/Peterson Pulse Ox Last 24 Hr 97.3 F-98.6 F 64-90 18-20 125-189/78-103 95-99 General appearance: over weight - Head Head exam: Present: normal inspection - Eye Eye exam: Present: EOMI Pupils: Present: LIBERTAD - ENT ENT exam: Present: normal exam - Neck Neck exam: Present: normal inspection - Respiratory Respiratory exam: Present: clear to auscultation bilaterally - Cardiovascular Cardiovascular exam: Present: regular rate and rhythm - GI/Abdominal GI/Abdominal exam: Present: normal bowel sounds - Extremities Exam Extremities exam: Present: full ROM - Back Exam Back exam: Present: normal inspection - Psychiatric Psychiatric exam: Present: normal affect - Skin Skin exam: Present: normal color, dry Discharge Results Procedures and tests throughout hospitalization: Pending Orders 02/05/17 14:14 Blood Culture Stat 02/06/17 Urine Culture Routine 02/06/17 18:37 Blood Culture Stat Labs on day of discharge: Labs from last 24 hours 02/08/17 02/08/17 06:57 06:57 WBC 6.6 RBC 3.84 Hgb 11.4 L Hct 33.8 L MCV 88.0 MCH 30 MCHC 33.7 RDW 14.8 Plt Count 188 D MPV 11.5 Neut % (Auto) 65.8 Lymph % (Auto) 19.7 L Smith % (Auto) 11.3 Eos % (Auto) 2.1 Baso % (Auto) 0.3 Neut # (Auto) 4.4 Lymph # (Auto) 1.3 L Smith # (Auto) 0.8 Eos # (Auto) 0.1 Baso # (Auto) 0.0 Total Counted 100 Immature Gran % 0.8 Nucleated RBC % 0.0 Immature Gran # 0.05 Segmented Neutrophils 68 Band Neutrophils 2 Lymphocytes 19 L Monocytes 11 Nucleated RBCs # 0.00 Platelet Estimate Normal Microcytosis Slight [place] Cells Slight Morphology Comment Sodium 143 Potassium 3.8 Chloride 110 H Carbon Dioxide 21 Anion Gap 15.8 H BUN 17 Creatinine 1.00 GFR Calculation 75 BUN/Creatinine Ratio 17.00 Glucose 79 Calculated Osmolality 285.0 Calcium 8.0 L Preliminary micro results at discharge 02/05/17 14:14 Blood Culture - Preliminary Blood No growth at 3 days 02/05/17 14:14 Blood Culture - Preliminary Blood No growth at 3 days 02/06/17 Unknown Urine Culture - Preliminary Urine,Voided No Growth at 24 hours. 02/06/17 18:37 Blood Culture - Preliminary Blood No growth at 1 day 02/06/17 18:37 Blood Culture - Preliminary Blood No growth at 1 day DS: Provider Date of admission: 02/05/17 13:41 Primary care physician: . No PCP Attending physician on admission: Marialuisa Gardner MD Consults: 02/05/17 14:12 Consult to Physician [CONS] Routine Comment: pyelo w obstructing renal stone Consulting Provider: Matthew Lange When should Consulting Provider be notified: Now Person Notified: aware Date Notified: 02/05/17 Time Notified: 16:27 Discharging clinician: Alli Mendoza Jr., MD
== END 2017-02-08 16:05 | disposition home or self-care (01) | DRG 872 ==
LOC: EDUNIT# → EDBD → N.ED 12:56 → N.EDINP 13:41 → SUATTDRO 13:41 → N.5E 15:15
PROVIDERS: ADMIT Internal Medicine; ATTEND Internal Medicine Nephrology